=== PATIENT | male | born 1945 | race Hispanic/Latino ===

== ENCOUNTER → 2020-11-25 | Day surgery (SDC) | payer MEDICARE ==
[2020-11-23 11:00] LABS: BASOPHILS % 0.3 % (0.0-1.0); EOSINOPHILS # (AUTO) 0.1 (0.0-0.4); EOSINOPHILS % 1.4 % (0.0-6.0); HEMATOCRIT 40.2 % (38.2-49.6); HEMOGLOBIN 13.6 g/dL (14.0-18.0); LYMPHOCYTES # (AUTO) 1.5 (1.0-3.2); LYMPHOCYTES % 23.4 % (18.0-39.1); MEAN CORPUSCULAR HEMOGLOBIN 31.9 pg (28-32); MEAN CORPUSCULAR HGB CONC 33.8 g/dL (31-35); MEAN CORPUSCULAR VOLUME 94.4 fL (81-99); MONOCYTES # (AUTO) 0.7 (0.2-0.8); MONOCYTES % 11.4 % (4.4-11.3); NEUTROPHILS % 63.3 % (38.7-80.0); PLATELET COUNT 255 x10e3/uL (140-360); RED BLOOD COUNT 4.26 x10e6/uL (4.3-5.7); RED CELL DISTRIBUTION WIDTH 16.7 % (11.7-14.4)
[~2020-11-25] MED LIST: ACTOS15 MG PO; ASPIRIN81 MG PO; CRESTOR10 MG PO; FINASTERIDE5 MG PO; FLOMAX0.4 MG PO; GLIPIZIDE ER5 MG PO; JANUVIA100 MG PO; METFORMIN HCL500 MG PO; METOPROLOL SUCC50 MG PO; NAPROXEN250 MG PO; PANTOPRAZOLE SO40 MG PO; PROPOFOL IV EMULSION 10 MG/ML 20 ML VIAL ONE; ZESTRIL10 MG PO
[2020-11-25 09:45] VITALS: BP 146/82
== END | disposition home or self-care (01) ==
LOC: OR 06:14
PROVIDERS: ATTEND Internal Medicine Gastroenterology
DX: K59.00 Constipation, unspecified (principal); D12.8 Benign neoplasm of rectum; K64.8 Other hemorrhoids; R19.5 Other fecal abnormalities; Z71.3 Dietary counseling and surveillance; E66.9 Obesity, unspecified; I49.3 Ventricular premature depolarization; E11.9 Type 2 diabetes mellitus without complications; I10 Essential (primary) hypertension; Z01.810 Encounter for preprocedural cardiovascular examination; Z01.812 Encounter for preprocedural laboratory examination; Z20.822 Contact with and (suspected) exposure to COVID-19; Z79.84 Long term (current) use of oral hypoglycemic drugs; Z79.82 Long term (current) use of aspirin; Z68.33 Body mass index [BMI] 33.0-33.9, adult
CPT/HCPCS: 36415 ×2; 45385; 82948; 85025; 93005; J2704; U0002

== ENCOUNTER → 2024-07-31 | Day surgery (SDC) | payer MEDICARE ==
[~2024-07-31] MED LIST changes: +AMITIZA24 MCG PO; +BACLOFEN10 MG PO; +CELEBREX200 MG PO; +DICYCLOMINE HCL20 MG PO; +LACTATED RINGER'S 1,000 ML ONE; +LOPERAMIDE2 MG PO; +NAPROXEN500 MG PO; +NEURONTIN300 MG PO; +STOOL SOFT60 MG/15 M PO; +TERBINAFINE HC250 MG PO; +TRULANCE3 MG PO
[2024-07-31 12:32] VITALS: TEMP 98.2
[2024-07-31 13:00] VITALS: BP 112/63; PULSE 58; RESP 17; O2SAT 98
== END | disposition home or self-care (01) ==
LOC: OR 11:08
PROVIDERS: ATTEND Internal Medicine Gastroenterology
DX: R13.10 Dysphagia, unspecified (principal); Z86.0100 Personal history of colon polyps, unspecified; K29.50 Unspecified chronic gastritis without bleeding; K31.A15 Gastric intestinal metaplasia without dysplasia, involving multiple sites; K31.89 Other diseases of stomach and duodenum; K64.8 Other hemorrhoids; E11.9 Type 2 diabetes mellitus without complications; I10 Essential (primary) hypertension; Z78.9 Other specified health status; Z79.82 Long term (current) use of aspirin; Z79.84 Long term (current) use of oral hypoglycemic drugs; Z79.1 Long term (current) use of non-steroidal anti-inflammatories (NSAID); Z79.899 Other long term (current) drug therapy; Z68.29 Body mass index [BMI] 29.0-29.9, adult
CPT/HCPCS: 43239; 43249; 45378; 88305; 88342; J2704; J7121; 43233